=== PATIENT | male | born 1940 | race Caucasian/White ===

== ENCOUNTER 2017-04-06 00:21 | Inpatient (IN) | payer MEDICARE, BC ==
--- NOTE | 2017-04-06 00:39 | C.PDOC ---
History Of Present Illness 76 year old male presents to the ED c/o abdominal pain and emesis for the past 2 days. Patient reports he goes to dialysis on Friday, Friday, Friday. Patient went to dialysis on Friday and has also decreased PO intake. Patient is currently on antibiotics for "cellulitis". Time Seen by Provider: 04/06/17 00:38 Chief Complaint (Nursing): Abdominal Pain History Per: Patient History/Exam Limitations: no limitations Onset/Duration Of Symptoms: Days Current Symptoms Are (Timing): Still Present Location Of Pain/Discomfort: Diffuse Radiation Of Pain To:: None Quality Of Discomfort: "Pain" Associated Symptoms: Vomiting Alleviating Factors: None Recent travel outside of the [place]: No Additional History Per: Patient Past Medical History Reviewed: Historical Data, Nursing Documentation, Vital Signs Vital Signs: Last Vital Signs Temp 97.6 F 04/06/17 00:28 Pulse 63 04/06/17 00:28 Resp 14 04/06/17 00:28 BP 97/47 L 04/06/17 00:28 Pulse Ox 92 L 04/06/17 02:38 - Medical History PMH: HTN, End Stage Renal Disease (Dialysis; Lt. arm AV shunt; MWF) Surgical History: Coronary Stent - [facility] PERFORMANCE OF URINARY FILTRATION, SINGLE (04/13/16) Family History: States: No Known Family Hx - Social History Hx Tobacco Use: No Hx Alcohol Use: No Hx Substance Use: No - Immunization History Hx Tetanus Toxoid Vaccination: No Hx Influenza Vaccination: Yes Hx Pneumococcal Vaccination: Yes Review Of Systems Constitutional: Negative for: Fever, Chills Cardiovascular: Negative for: Chest Pain, Palpitations Respiratory: Negative for: Cough, Shortness of Breath Gastrointestinal: Positive for: Vomiting, Abdominal Pain Musculoskeletal: Negative for: Neck Pain Skin: Negative for: Rash Neurological: Negative for: Weakness, Numbness Physical Exam - Physical Exam Appears: Non-toxic, No Acute Distress Skin: Warm, Dry Head: Normacephalic Nose: No Discharge, No Deformity Oral Mucosa: Dry Neck: Normal ROM, Supple Chest: Symmetrical, Other (left shunt bruit) Cardiovascular: Rhythm Regular, No Murmur, Other (left shunt bruit) Respiratory: Rhonchi (scattered at the bases ) Gastrointestinal/Abdominal: Soft, Tenderness (diffuse), Distention (mild), No Guarding, No Rebound Extremity: Normal ROM, Pedal Edema (B/L trace), No Calf Tenderness, Capillary Refill (< 2 seconds), Deformity (severe gouty changes to B/L elbows ), No Swelling, Other (ventral right foot 2x5 cm area necrosis surrounded by yellowish area with fluctuance and a possible abscess) Pulses: Left Dorsalis Pedis: Normal, Right Dorsalis Pedis: Normal Neurological/Psych: Oriented x3, Normal Motor, Normal Sensation ED Course And Treatment - Laboratory Results Result Diagrams: 04/06/17 02:14 04/06/17 02:14 ECG: Interpreted By Me, Viewed By Me O2 Sat by Pulse Oximetry: 92 Pulse Ox Interpretation: Abnormal - Radiology CXR: Interpreted by Me, Viewed By Me CXR Interpretation: Yes: Other (mild chf). No: Infiltrates, Fracture, Cardiomegaly Progress Note: Plan: -VBG. -EKG. -Blood work. -CXR. -Protonix 80 mg. - Zofran 4 mg. -UA. spoke with dr llanes who requests that pt be admitted to dr juares service Central Line Placement - Central Line Placement Indication: Unable To Obtain Adequate Peripheral Access Central Line Placement: Right: Femoral The Area Was Thoroughly Prepared With: Betadine, Chlorhexidine, Draped Using Sterile Technique Area Was Locally Anesthetized With: Lidocaine 1% Procedure: Triple Lumen, Placed Using Standard Seldinger Technique, Catheter Was Sewn Into Place, Sterile Dressing Placed Over Line, Procedure Tolerated Well Critical Care Time - Critical Care Note Total Time (in mins): 30 Documented critical care: time excludes all time spent performing seperately billable procedures. Disposition Discussed With DrRaina: Debbie Shah Comment: accepted the pt on his service and took over the care at 2:40 AM Doctor Will See Patient In The: Hospital Counseled Patient/Family Regarding: Studies Performed, Diagnosis - Disposition Disposition: HOSPITALIZED Disposition Time: 00:39 Condition: CRITICAL Forms: [facility] (Lebanese) - POA Present On Arrival: Poor Glycemic Control - Clinical Impression Clinical Impression: Abdominal pain, ESRD (end stage renal disease) on dialysis, Sepsis, UGI bleed, Gangrene of right foot - Scribe Statement The provider has reviewed the documentation as recorded by the Scribe Rocky Randle All medical record entries made by the Scribe were at my direction and personally dictated by me. I have reviewed the chart and agree that the record accurately reflects my personal performance of the history, physical exam, medical decision making, and the department course for this patient. I have also personally directed, reviewed, and agree with the discharge instructions and disposition. Decision To Admit - Pt Status Changed To: Hospital Disposition Of: Inpatient - Admit Certification Admit to Inpatient:: After my assessment, the patient will require hospitalization for at least two midnights. This is because of the severity of symptoms shown, intensity of services needed, and/or the medical risk in this patient being treated as an outpatient. - InPatient: Physician Admission Certification:: After my assessment, the patient will require hospitalization for at least two midnights. This is because of the severity of symptoms shown, intensity of services needed, and/or the medical risk in this patient being treated as an outpatient. - . Bed Request Type: ICU Admitting Physician: Sherif Juares Patient Diagnosis: Abdominal pain, ESRD (end stage renal disease) on dialysis, Sepsis, UGI bleed, Gangrene of right foot
[2017-04-06] MEDS ORDERED: Pantoprazole 80 MG in Sodium Chloride 0.9% 100 ML IV STA (00:51)
[2017-04-06] MEDS ORDERED: Lidocaine 1% Inj (20ml) ONE (01:14)
[2017-04-06 02:02] LABS: VENOUS BLOOD GAS BASE EXCESS 5.9 mmol/L (0.0-2.0); VENOUS BLOOD GAS PCO2 31 mmHg (40-60); VENOUS BLOOD GAS PO2 35 mm/Hg (30-55); VENOUS BLOOD PH 7.56 (7.32-7.43)
[2017-04-06 02:18] LABS: BASO # 0.3 K/uL (0.0-0.2); BASO % 0.8 % (0.0-2.0); HEMOGLOBIN 14.1 g/dL (12.0-18.0); LYMPH # 0.5 K/uL (1.0-4.3); LYMPH % 1.5 % (20.0-40.0); MEAN CELL VOLUME 95.4 fL (80.0-94.0); MEAN CORPUSCULAR HEMOGLOBIN 31.7 pg (27.0-31.0); MEAN CORPUSCULAR HGB CONC 33.2 g/dL (33.0-37.0); MONO # 2.8 K/uL (0.0-0.8); MONO % 8.5 % (0.0-10.0); NEUT # 28.9 K/uL (1.8-7.0); NEUT % 89.2 % (50.0-75.0); PLATELET COUNT 267 K/uL (130-400); RBC 4.45 Mil/uL (4.40-5.90); RED CELL DISTRIBUTION WIDTH 16.5 % (11.5-14.5); WHITE BLOOD COUNT 32.4 K/uL (4.8-10.8)
[2017-04-06 02:25] LABS: INR 1.3; PROTHROMBIN TIME 15.2 SECONDS (9.7-12.2)
[2017-04-06] MEDS ORDERED: Piperacillin/Tazobact 3.375 gm 100 ML IVPB STA (02:29)
[2017-04-06 02:32] LABS: ALBUMIN 2.7 g/dL (3.5-5.0); CALCIUM 8.9 mg/dl (8.6-10.4)
[2017-04-06] MEDS ORDERED: Piperacill/Tazo 3.375gm in Dex 3.375 GM/50 ML BAG IVPB STA (02:32)
[2017-04-06 02:33] LABS: ALB/GLOB RATIO 0.9 (1.0-2.1)
[2017-04-06] MEDS ORDERED: Vancomycin 1 gm/NS 200 ml 1 GM/200 ML BAG IVPB STA (02:33)
--- NOTE | 2017-04-06 03:55 | CP.PCM.HP ---
History of Present Illness - History of Present Illness History of Present Illness: CC: Vomiting HPI: Mr Diaz is a 76 year old [facility] male who was brought in by ambulance for vomiting. His past medical history includes ESRD on HD, HTN, CAD, Hx of [place] and tophaceous gout. The history was provided by his daughter who was visiting from [place]. She said that on Friday after his hemodialysis, Mr Diaz went home and began vomiting brownish liquid. Mr Diaz's believes the emesis was bloody. He has been nauseous and vomiting for the past 48 hours. He also had 2 episodes of non-bloody diarrhea and has also had abdominal pain. He has also had decreased oral intake. His is his primary caregiver however the patient's had a stroke in 02/2017 and has had trouble taking care of the patient since then. The patient is able to ambulate at home with a walker. His daughter reports that he has poor compliance with medications. PMD: Dr. Tamara Shah PMHx: ESRD on HD since 2009; CAD; HTN; [place] in 1997; Tophaceous gout PSHx: CABG 1997 - triple bypass with stents; cholecystectomy 2004 Social Hx: Denies alcohol, drugs or tobacco use. Family Hx: Father had HTN, Stomach CA Allergies: Nitroglycerin Medications: Aspirin 81 mg PO daily, Atenolol 25 mg PO daily, Plavix 75 mg PO daily, Sensipar 30 mg PO daily, Uloric 40 mg PO daily, Pepcid 20 mg PO BID, Losartan 100 mg PO daily, Phoslo 667mg PO BID. Present on Admission - Present on Admission Any Indicators Present on Admission: No Review of Systems - Review of Systems Systems not reviewed;Unavailable: Acuity of Condition Review of Systems: Patient was in distress and unable to answer questions Past Patient History - Past Social History Smoking Status: Never Smoked - CARDIAC Hx Hypertension: Yes - MUSCULOSKELETAL/RHEUMATOLOGICAL Hx Gout: Yes - PSYCHIATRIC Hx Substance Use: No - SURGICAL HISTORY Hx Coronary Stent: Yes Meds Allergies/Adverse Reactions: Allergies Allergy/AdvReac Type Severity Reaction Status Date / Time nitroglycerin Allergy Verified 04/06/17 00:34 Physical Exam - Constitutional Appears: In Acute Distress, Unkempt, Confused - Head Exam Head Exam: ATRAUMATIC - Eye Exam Eye Exam: EOMI - ENT Exam ENT Exam: Mucous Membranes Dry - Neck Exam Neck exam: Positive for: Normal Inspection - Respiratory Exam Respiratory Exam: Rhonchi, NORMAL BREATHING PATTERN. absent: Rales, Wheezes Additional comments: Rhonchi at bases - Cardiovascular Exam Cardiovascular Exam: REGULAR RHYTHM. absent: Tachycardia, Systolic Murmur - GI/Abdominal Exam GI & Abdominal Exam: Distended, Soft, Tenderness. absent: Guarding, Rebound - Extremities Exam Extremities exam: Positive for: pedal edema, tenderness. Negative for: normal capillary refill, normal inspection, pedal pulses present Additional comments: Severe tophaceous gout at elbows bilaterally Pedal edema in ankles bilaterally Non-palpable pedal pulses bilaterally - Skin Skin Exam: Dry Additional comments: Right foot 5cm diameter eschar at first metatarsal Stasis dermatitis in feet bilaterally Tense skin in feet b/l Results - Vital Signs Recent Vital Signs: Last Vital Signs Temp 97.6 F 04/06/17 00:28 Pulse 63 04/06/17 00:28 Resp 14 04/06/17 00:28 BP 97/47 L 04/06/17 00:28 Pulse Ox 92 L 04/06/17 03:11 - Labs Result Diagrams: 04/06/17 02:14 04/06/17 02:14 Labs: Laboratory Results - last 24 hr 04/06/17 04/06/17 04/06/17 01:55 02:14 02:14 WBC 32.4 H D RBC 4.45 Hgb 14.1 Hct 42.4 MCV 95.4 H MCH 31.7 H MCHC 33.2 RDW 16.5 H Plt Count 267 MPV 10.0 Neut % (Auto) 89.2 H Lymph % (Auto) 1.5 L [place] % (Auto) 8.5 Eos % (Auto) 0.0 Baso % (Auto) 0.8 Neut # 28.9 H Lymph # 0.5 L [place] # 2.8 H Eos # 0.0 Baso # 0.3 H PT 15.2 H INR 1.3 APTT 35 H pO2 35 VBG pH 7.56 H VBG pCO2 31 L VBG HCO3 29.0 VBG Total CO2 28.8 H VBG O2 Sat (Calc) 70.7 H VBG Base Excess 5.9 H VBG Potassium 4.2 Sodium 140.0 Chloride 101.0 Glucose 79 Lactate 3.9 H Potassium Carbon Dioxide Anion Gap BUN Creatinine Est GFR ( Amer) Est GFR (Non-Af Amer) Random Glucose Calcium Total Bilirubin AST ALT Alkaline Phosphatase Total Protein Albumin Globulin Albumin/Globulin Ratio Lipase Venous Blood Potassium 4.2 Blood Type Antibody Screen 04/06/17 04/06/17 02:14 02:14 WBC RBC Hgb Hct MCV MCH MCHC RDW Plt Count MPV Neut % (Auto) Lymph % (Auto) [place] % (Auto) Eos % (Auto) Baso % (Auto) Neut # Lymph # [place] # Eos # Baso # PT INR APTT pO2 VBG pH VBG pCO2 VBG HCO3 VBG Total CO2 VBG O2 Sat (Calc) VBG Base Excess VBG Potassium Sodium 134 Chloride 95 L Glucose Lactate Potassium 4.0 Carbon Dioxide 25 Anion Gap 18 BUN 40 H Creatinine 6.7 H Est GFR ( Amer) 10 Est GFR (Non-Af Amer) 8 Random Glucose 74 L Calcium 8.9 Total Bilirubin 1.6 H AST 33 ALT 29 Alkaline Phosphatase 170 H Total Protein 5.5 L Albumin 2.7 L D Globulin 2.9 Albumin/Globulin Ratio 0.9 L Lipase 86 Venous Blood Potassium Blood Type A POSITIVE Antibody Screen Negative Assessment & Plan (1) Sepsis Assessment and Plan: Vitals on admission: HR 93, BP 66/42, RR 24, Temp 97.6, O2sat 100 WBC on admission: 32.4 Sepsis from likely bactremia from right foot eschar, suspected abscess F/U Chest w/ contrast F/U Abd Ileofem runoff w/ contrast Vanco and Zosyn received in ED 04/06/17 Imipenem/Cilastin 500mg IVPB Q12H started 04/06/17 F/U Urinanalysis F/U Blood culture F/U Urine culture Status: Acute (2) UGI bleed Assessment and Plan: UGI bleeding with coffee ground like vomiting, nv at home HOLD prophylactic or home anticoagulation Protonix 40mg IVP Q12H Zofran 4mg IVP Q6H PRN Status: Acute (3) Abdominal pain Assessment and Plan: F/U CT Angio Abd illeofem runoff Keep NPO for now Status: Acute (4) Gangrene of right foot Assessment and Plan: Consult Podiatry, Dr Plasencia Consult Vascular Surgery, Dr Greer Sepsis from likely bactremia from right foot eschar, suspected abscess Status: Acute (5) ESRD (end stage renal disease) on dialysis Assessment and Plan: Consult Nephrology, Dr Love, Recs appreciated On HD MWF Status: Acute (6) CAD (coronary artery disease) Assessment and Plan: CABG 1997 - triple bypass with stents HOLD home med aspirin 81mg PO QD HOLD home med atenolol 25mg PO QD HOLD home med plavix 75mg PO QD F/U Echo Status: Acute (7) HTN (hypertension) Assessment and Plan: BP low on admission 2/2 dehydration On Dopamine drip HOLD all home BP meds Status: Acute (8) Prophylactic measure Assessment and Plan: SCD contraindicated 2/2 peripheral vascular disease VTE contraindicated 2/2 to possible upper GI bleed Keep NPO for now Status: Acute
[2017-04-06] MEDS ORDERED: Sodium Chloride 0.9% 1,000 ML IV ONE (03:58)
--- NOTE | 2017-04-06 04:00 | CP.PCM.CON ---
History of Present Illness - History of Present Illness History of Present Illness: 76 year old male with CAD s/p CABG,Stents,gout,ESRD on HD presents to the ED c/ o diffuse abdominal pain ,nausea,vomiting x 2 days(since last HD on 04/04) and 2 loose bowel movements 04/05/17. Vomitus was brown. Patient reports he goes to dialysis on Friday, Friday, Friday. Patient went to dialysis on Friday and has also decreased PO intake. Patient is currently on antibiotics for infection of the foot. No chest pain,palpitations,fever or chills. Unsure whether patient has been taking medications regularly History from daughter and patient. He lives with his who is the caregiver.The had a stroke in February and is difficult to care for the patient.Patient ambulates at home in ER patient Hypotensive with leucocytosis and elevated lactic acid level. Right Femoral TLC inserted for IV access Review of Systems - Review of Systems Systems not reviewed;Unavailable: Unstable Vital Signs Review of Systems: restless - Constitutional Constitutional: absent: Chills, Fever Additional comments: poor oral intake - EENT Eyes: absent: Blurred Vision, Change in Vision Ears: absent: Ear Pain, Dizziness Nose/Mouth/Throat: Dry Mouth. absent: Nasal Congestion, Hoarsness - Cardiovascular Cardiovascular: Edema. absent: Chest Pain, Paroxysmal Nocturnal Dyspnea - Respiratory Respiratory: absent: Cough, Dyspnea - Gastrointestinal Gastrointestinal: Abdominal Pain, Loose Stools, Nausea, Vomiting - Genitourinary Genitourinary: absent: Hematuria, Urinary Incontinence - Musculoskeletal Musculoskeletal: absent: Neck Pain, Stiffness Additional comments: Swelling in bilateral elbows chronic from Gout - Integumentary Integumentary: absent: Bleeding Lesions, Rash - Neurological Neurological: absent: Dizziness, Headaches - Hematologic/Lymphatic Hematologic: absent: Easy Bleeding Past Patient History - Past Medical History & Family History Past Medical History?: Yes - Past Social History Smoking Status: Never Smoked Alcohol: None Drugs: Denies Home Situation {Lives}: With Family - CARDIAC Hx Hypertension: Yes Other/Comment: Bypass surgery and stents - MUSCULOSKELETAL/RHEUMATOLOGICAL Hx Gout: Yes - GENITOURINARY/GYNECOLOGICAL Other/Comment: ESRD on Hemodialysis 3 times a week for the past 7-8 years - PSYCHIATRIC Hx Substance Use: No - SURGICAL HISTORY Hx Cholecystectomy: Yes Hx Coronary Stent: Yes Meds Allergies/Adverse Reactions: Allergies Allergy/AdvReac Type Severity Reaction Status Date / Time nitroglycerin Allergy Verified 04/06/17 00:34 Physical Exam - Constitutional Additional comments: restless - Head Exam Head Exam: ATRAUMATIC, NORMAL INSPECTION, NORMOCEPHALIC - Eye Exam Eye Exam: EOMI, Normal appearance, PERRL. absent: Conjunctival injection, Periorbital swelling Pupil Exam: NORMAL ACCOMODATION - ENT Exam ENT Exam: Mucous Membranes Dry - Neck Exam Neck exam: Positive for: Full Rom, Normal Inspection - Respiratory Exam Respiratory Exam: Clear to Auscultation Bilateral. absent: Accessory Muscle Use - Cardiovascular Exam Cardiovascular Exam: REGULAR RHYTHM. absent: JVD - GI/Abdominal Exam GI & Abdominal Exam: Normal Bowel Sounds, Soft, Tenderness Additional comments: tender left upper abdomen - Extremities Exam Extremities exam: Positive for: pedal edema. Negative for: calf tenderness, pedal pulses present Additional comments: bilateral leg edema right more than left - Neurological Exam Neurological exam: Alert, Oriented x3 - Skin Additional comments: both feet erythematous right foot plantar aspect distally 2x5 cm area of black skin surrounded by yellow area(soft) Elbows with gouty lesions Results - Vital Signs Recent Vital Signs: Last Vital Signs Temp 97.6 F 04/06/17 00:28 Pulse 63 04/06/17 00:28 Resp 14 04/06/17 00:28 BP 97/47 L 04/06/17 00:28 Pulse Ox 92 L 04/06/17 03:11 - Labs Result Diagrams: 04/06/17 02:14 04/06/17 02:14 Labs: Laboratory Results - last 24 hr 04/06/17 04/06/17 04/06/17 01:55 02:14 02:14 WBC 32.4 H D RBC 4.45 Hgb 14.1 Hct 42.4 MCV 95.4 H MCH 31.7 H MCHC 33.2 RDW 16.5 H Plt Count 267 MPV 10.0 Neut % (Auto) 89.2 H Lymph % (Auto) 1.5 L [place] % (Auto) 8.5 Eos % (Auto) 0.0 Baso % (Auto) 0.8 Neut # 28.9 H Lymph # 0.5 L [place] # 2.8 H Eos # 0.0 Baso # 0.3 H PT 15.2 H INR 1.3 APTT 35 H pO2 35 VBG pH 7.56 H VBG pCO2 31 L VBG HCO3 29.0 VBG Total CO2 28.8 H VBG O2 Sat (Calc) 70.7 H VBG Base Excess 5.9 H VBG Potassium 4.2 Sodium 140.0 Chloride 101.0 Glucose 79 Lactate 3.9 H Potassium Carbon Dioxide Anion Gap BUN Creatinine Est GFR ( Amer) Est GFR (Non-Af Amer) Random Glucose Calcium Total Bilirubin AST ALT Alkaline Phosphatase Total Protein Albumin Globulin Albumin/Globulin Ratio Lipase Venous Blood Potassium 4.2 Blood Type Antibody Screen 04/06/17 04/06/17 02:14 02:14 WBC RBC Hgb Hct MCV MCH MCHC RDW Plt Count MPV Neut % (Auto) Lymph % (Auto) [place] % (Auto) Eos % (Auto) Baso % (Auto) Neut # Lymph # [place] # Eos # Baso # PT INR APTT pO2 VBG pH VBG pCO2 VBG HCO3 VBG Total CO2 VBG O2 Sat (Calc) VBG Base Excess VBG Potassium Sodium 134 Chloride 95 L Glucose Lactate Potassium 4.0 Carbon Dioxide 25 Anion Gap 18 BUN 40 H Creatinine 6.7 H Est GFR ( Amer) 10 Est GFR (Non-Af Amer) 8 Random Glucose 74 L Calcium 8.9 Total Bilirubin 1.6 H AST 33 ALT 29 Alkaline Phosphatase 170 H Total Protein 5.5 L Albumin 2.7 L D Globulin 2.9 Albumin/Globulin Ratio 0.9 L Lipase 86 Venous Blood Potassium Blood Type A POSITIVE Antibody Screen Negative - EKG Data EKG Interpreted by: Myself - Imaging and Cardiology Chest x-ray Status: Image reviewed by me Assessment & Plan - Assessment and Plan (Free Text) Assessment: 1.Sespsis/Hypotension- Source ?right foot CT abdomen to R/o abdominal eitiology IV antibiotics f/u blood cultures 2.h/o CAD/HTN on meds 3.UGI Bleed-Protonix,f/u H/H 4.ESRD on HD 5.Gout
[2017-04-06] MEDS ORDERED: DOPamine 400mg/250ml D5W 400 MG/250 ML BAG IV PRN (04:34)
--- NOTE | 2017-04-06 05:53 | CP.PCM.PN ---
Subjective - Date & Time of Evaluation Date of Evaluation: 04/06/17 Time of Evaluation: 05:48 - Subjective Subjective: PMHx: ESRD on HD since 2009; CAD; HTN; [place] in 1997; Tophaceous gout PSHx: CABG 1997 - triple bypass with stents; cholecystectomy 2004 Social Hx: Denies alcohol, drugs or tobacco use. Family Hx: Father had HTN, Stomach [place] Allergies: Nitroglycerin Medications: Aspirin 81 mg PO daily, Atenolol 25 mg PO daily, Plavix 75 mg PO daily, Sensipar 30 mg PO daily, Uloric 40 mg PO daily, Pepcid 20 mg PO BID, Losartan 100 mg PO daily, Phoslo 667mg PO BID. Assessment UGI bleeding with coffee ground like vomiting, nv at home Significant dehydration Severe PVD Sepsis from likely bactremia from right foot eschar, suspected abscess ESRD on HD Addi Perla CAD CABG Poor compliance Femoral access done in ER. Plan Admit ICU Fluid bolus x 1.5 lit CTA from abd to lower ext, CT chest Need dopamine till bp improves and counter act sedation give as pt is rest less No anticoagulation but SCD PPI iv Vancomycin and Imipenem Nephrology, GI, Vas surg, podiatry consult See orders for detail. Objective - Vital Signs/Intake and Output Vital Signs (last 24 hours): Temp Pulse Resp BP Pulse Ox 97.6 F 95 H 22 132/67 100 04/06/17 00:28 04/06/17 05:40 04/06/17 05:40 04/06/17 05:40 04/06/17 05:40 Intake and Output: 04/05/17 04/06/17 18:59 06:59 Intake Total 1 Balance 1 - Medications Medications: Current Medications Imipenem/Cilastatin Sodium 500 (mg/ Sodium Chloride) 100 mls @ 100 mls/hr IVPB Q12H [facility] Last Admin: 04/06/17 04:37 Dose: 100 mls/hr Dopamine HCl/Dextrose (Dopamine 400mg/250ml D5w) 400 mg in 250 mls @ 43.375 mls /hr IV .Q5H46M PRN; Protocol; 15 MCG/KG/MIN PRN Reason: TITRATE PER MD ORDER Last Titration: 04/06/17 05:05 Dose: 10 mcg/kg/min, 28.917 mls/hr Ondansetron HCl (Zofran Inj) 4 mg IVP Q6H PRN PRN Reason: Nausea/Vomiting Pantoprazole Sodium (Protonix Inj) 40 mg IVP Q12H [facility] Last Admin: 04/06/17 04:39 Dose: 40 mg - Labs Labs: 04/06/17 02:14 04/06/17 02:14 PT 15.2 SECONDS (9.7-12.2) H 04/06/17 02:14 INR 1.3 04/06/17 02:14 APTT 35 SECONDS (21-34) H 04/06/17 02:14
[2017-04-06 05:55] LABS: BANDS 2 % (0-2); MONOCYTE 9 % (0-10); NEUTROPHIL 89 % (50-75); PLATELET ESTIMATE NORMAL (NORMAL); TOTAL CELLS COUNTED 100
[2017-04-06 07:59] LABS: BASO # 0.2 K/uL (0.0-0.2); BASO % 0.5 % (0.0-2.0); EOS % 0.1 % (0.0-4.0); LYMPH # 0.5 K/uL (1.0-4.3); LYMPH % 1.7 % (20.0-40.0); MEAN CORPUSCULAR HEMOGLOBIN 31.5 pg (27.0-31.0); MEAN CORPUSCULAR HGB CONC 32.1 g/dL (33.0-37.0); MONO % 6.5 % (0.0-10.0); NEUT # 28.1 K/uL (1.8-7.0); NEUT % 91.2 % (50.0-75.0); NRBC % 0.2 % (0.0-2.0); PLATELET COUNT 260 K/uL (130-400); RBC 4.75 Mil/uL (4.40-5.90); RED CELL DISTRIBUTION WIDTH 16.9 % (11.5-14.5); WHITE BLOOD COUNT 30.8 K/uL (4.8-10.8)
[2017-04-06 08:04] LABS: MEAN CELL VOLUME 98.2 fL (80.0-94.0)
--- NOTE | 2017-04-06 08:29 | CP.PCM.CON ---
History of Present Illness - History of Present Illness History of Present Illness: Vascular Surgery: Dr Greer 76M w/ hx of CAD s/p CABG, stents, ESRD on HD. Pt presented to ED with diffuse abdominal pain accompanied by N/V. Pt has been having BMs. Taking dialysis routinely. Unclear if pt has been medication compliant. Main history taken from ICU note as per and daughter. Pt is disoriented at this time. Adm dx : sepsis Sx consulted for b/l foot ischemia. appears chronic. will order CTA Review of Systems - Review of Systems Systems not reviewed;Unavailable: Acuity of Condition All systems: reviewed and no additional remarkable complaints except Past Patient History - Past Medical History & Family History Past Medical History?: Yes - Past Social History Smoking Status: Never Smoked - CARDIAC Hx Hypertension: Yes - PULMONARY Hx Respiratory Disorders: No - NEUROLOGICAL Hx Neurological Disorder: No - HEENT Hx HEENT Problems: No - RENAL Hx Chronic Kidney Disease: Yes Hx Dialysis: Yes Type of Dialysis Access: left AV SHUNT Hx Renal Failure: Yes Other/Comment: HD MWF - HEMATOLOGICAL/ONCOLOGICAL Hx Blood Disorders: No - INTEGUMENTARY Hx Cellulitis: Yes (LEGS) - MUSCULOSKELETAL/RHEUMATOLOGICAL Hx Gout: Yes - GENITOURINARY/GYNECOLOGICAL Other/Comment: ESRD on Hemodialysis MWF for the past 7-8 years - PSYCHIATRIC Hx Substance Use: No - SURGICAL HISTORY Hx Coronary Stent: Yes - ANESTHESIA Hx Anesthesia: Yes Hx Anesthesia Reactions: No Meds Allergies/Adverse Reactions: Allergies Allergy/AdvReac Type Severity Reaction Status Date / Time nitroglycerin Allergy Verified 04/06/17 00:34 - Medications Medications: Current Medications Imipenem/Cilastatin Sodium 500 (mg/ Sodium Chloride) 100 mls @ 100 mls/hr IVPB Q12H ERASMO Last Admin: 04/06/17 04:37 Dose: 100 mls/hr Dopamine HCl/Dextrose (Dopamine 400mg/250ml D5w) 400 mg in 250 mls @ 43.375 mls /hr IV .Q5H46M PRN; Protocol; 15 MCG/KG/MIN PRN Reason: TITRATE PER MD ORDER Last Titration: 04/06/17 05:05 Dose: 10 mcg/kg/min, 28.917 mls/hr Ondansetron HCl (Zofran Inj) 4 mg IVP Q6H PRN PRN Reason: Nausea/Vomiting Pantoprazole Sodium (Protonix Inj) 40 mg IVP Q12H [facility] Last Admin: 04/06/17 04:39 Dose: 40 mg Physical Exam - Constitutional Appears: No Acute Distress - Eye Exam Eye Exam: Normal appearance - Respiratory Exam Respiratory Exam: absent: Accessory Muscle Use, Respiratory Distress - Cardiovascular Exam Cardiovascular Exam: Tachycardia. absent: REGULAR RHYTHM - GI/Abdominal Exam GI & Abdominal Exam: Soft, Tenderness (diffuse). absent: Distended, Firm - Extremities Exam Additional comments: b/l lower extremity dry gangrene, non-palpable pulses below femoral, cold to touch Results - Vital Signs Recent Vital Signs: Last Vital Signs Temp 97.6 F 04/06/17 00:28 Pulse 95 H 04/06/17 05:49 Resp 17 04/06/17 05:49 BP 136/64 04/06/17 05:49 Pulse Ox 100 04/06/17 05:49 - Labs Result Diagrams: 04/06/17 07:43 04/06/17 07:43 Labs: Laboratory Results - last 24 hr 04/06/17 04/06/17 04/06/17 01:55 02:14 02:14 WBC 32.4 H D RBC 4.45 Hgb 14.1 Hct 42.4 MCV 95.4 H MCH 31.7 H MCHC 33.2 RDW 16.5 H Plt Count 267 MPV 10.0 Neut % (Auto) 89.2 H Lymph % (Auto) 1.5 L Barnes % (Auto) 8.5 Eos % (Auto) 0.0 Baso % (Auto) 0.8 Neut # 28.9 H Lymph # 0.5 L Barnes # 2.8 H Eos # 0.0 Baso # 0.3 H Neutrophils % (Manual) 89 H Band Neutrophils % 2 Lymphocytes % (Manual) TEST NOT PERFORMED Monocytes % (Manual) 9 Platelet Estimate Normal PT 15.2 H INR 1.3 APTT 35 H pO2 35 VBG pH 7.56 H VBG pCO2 31 L VBG HCO3 29.0 VBG Total CO2 28.8 H VBG O2 Sat (Calc) 70.7 H VBG Base Excess 5.9 H VBG Potassium 4.2 Sodium 140.0 Chloride 101.0 Glucose 79 Lactate 3.9 H Potassium Carbon Dioxide Anion Gap BUN Creatinine Est GFR ( Amer) Est GFR (Non-Af Amer) Random Glucose Calcium Total Bilirubin AST ALT Alkaline Phosphatase Total Protein Albumin Globulin Albumin/Globulin Ratio Lipase Venous Blood Potassium 4.2 Blood Type Antibody Screen 04/06/17 04/06/17 04/06/17 02:14 02:14 07:43 WBC 30.8 H RBC 4.75 Hgb 15.0 Hct 46.6 MCV 98.2 H D MCH 31.5 H MCHC 32.1 L RDW 16.9 H Plt Count 260 MPV 10.0 Neut % (Auto) 91.2 H Lymph % (Auto) 1.7 L Barnes % (Auto) 6.5 Eos % (Auto) 0.1 Baso % (Auto) 0.5 Neut # 28.1 H Lymph # 0.5 L Barnes # 2.0 H Eos # 0.0 Baso # 0.2 Neutrophils % (Manual) Band Neutrophils % Lymphocytes % (Manual) Monocytes % (Manual) Platelet Estimate PT INR APTT pO2 VBG pH VBG pCO2 VBG HCO3 VBG Total CO2 VBG O2 Sat (Calc) VBG Base Excess VBG Potassium Sodium 134 Chloride 95 L Glucose Lactate Potassium 4.0 Carbon Dioxide 25 Anion Gap 18 BUN 40 H Creatinine 6.7 H Est GFR ( Amer) 10 Est GFR (Non-Af Amer) 8 Random Glucose 74 L Calcium 8.9 Total Bilirubin 1.6 H AST 33 ALT 29 Alkaline Phosphatase 170 H Total Protein 5.5 L Albumin 2.7 L D Globulin 2.9 Albumin/Globulin Ratio 0.9 L Lipase 86 Venous Blood Potassium Blood Type A POSITIVE Antibody Screen Negative Assessment & Plan - Assessment and Plan (Free Text) Assessment: 76M admitted for sepsis, sx consulted for b/l foot ischemia Plan: appears like chronic dry gangrene will order CTA w/ ileofem run-off to eval vessels d/w Dr Percy Bueno, PGY3
[2017-04-06 08:30] LABS: ALB/GLOB RATIO 0.9 (1.0-2.1); CALCIUM 9.1 mg/dl (8.6-10.4); MAGNESIUM 2.3 mg/dL (1.6-2.3)
[2017-04-06 08:47] LABS: BANDS 2 % (0-2); LYMPHOCYTE 2 % (20-40); MONOCYTE 9 % (0-10); NEUTROPHIL 87 % (50-75); PLATELET ESTIMATE NORMAL (NORMAL); TOTAL CELLS COUNTED 100
--- NOTE | 2017-04-06 08:48 | RAD ---
PROCEDURE: CHEST RADIOGRAPH, 1 VIEW HISTORY: GI Bleeding COMPARISON: Comparison is made to 04/14/2016 FINDINGS: LUNGS: Prominent lung markings and reticular opacities seen at the lung bases slightly more on the left. Findings have improved compared to the previous exam. Otherwise no significant interval change. PLEURA: No pneumothorax or pleural fluid seen. CARDIOVASCULAR: The cardiac silhouette is normal in size. Left subclavian stent is again seen in place. The patient is status post sternotomy. OSSEOUS STRUCTURES: No significant abnormalities. VISUALIZED UPPER ABDOMEN: Normal. OTHER FINDINGS: None. IMPRESSION: Heterogeneous opacities at the lower lobes appear smaller compared to the previous exam. Otherwise no interval change.
[2017-04-06 08:49] LABS: ANISOCYTOSIS SLIGHT; HYPOCHROMIC SLIGHT; POLYCHROMIC SLIGHT
[2017-04-06 08:50] LABS: GIANT PLATELETS PRESENT; LARGE PLATELETS PRESENT; TARGET CELLS SLIGHT; TOXIC GRANULATION PRESENT
[2017-04-06] MEDS: EPINEPHrine 1 mg/ml (1:1000) Inj ONE ×2 (10:15)
[2017-04-06] MEDS ORDERED: Sodium Bicarbonate (8.4%) 50 Meq Syringe ONE ×3 (10:15→11:38)
[2017-04-06] MEDS ORDERED: Dextrose 50% SYRINGE Inj (50 ml) IV ONE (10:15)
[2017-04-06] MEDS ORDERED: Dextrose 50% VIAL Inj (50 ml) IV ONE ×2 (10:15→10:17)
--- NOTE | 2017-04-06 10:31 | PCM.ANES ---
Anesthesia Emergent Intubation - Diagnosis Working Diagnosis:: aspiration, code blue - Consult Reason for Consult:: airway protection and ventilation - Intubation Attempts Previous Number of Intubation Attempts:: 2 By:: Dr. Thomas - Pre-Intubation Vital Signs Oxygen Delivery Method: Non-Rebreather - Airway Management Oropharyngeal Area Suctioned: Yes (copious vomit) Possible Aspiration: Yes - Method of Intubation Intubation Method: Oral ETT ETT Size: 7.5 Lipline@: 23 Easy: No (direct laryngoscopy with mac 3 and 4 unable to obtain view. used glide ) Atramatic: Yes - Intubation Devices Bethel Scope Used: Yes - Placement Confirmation Breath Sounds Present & Equal Bilaterally: Yes Gurgling Sounds Not Audible at Epigastrum: Yes Positive EtCO2: Yes Recommendations: Ventilator, Chest X Ray, ABG
[2017-04-06] MEDS ORDERED: Midazolam 2 MG/2 ML VIAL ONE (10:38)
--- NOTE | 2017-04-06 11:00 | PCM.RRT ---
I.Reason for PSYCHIATRIC LPN - A) Acute Change in Patient: (Select all that apply): Acute change in heart rate less than 50 or greater than 120, Acute change in respiratory rate less than 8 or greater than 28 - Neurological Status Other (Please specify): Code Blue - Constitutional Additional Comments: CODE BLUE Plan - Assessment of Findings&Treatment Plan Mr. Diaz was admitted early this morning for sepsis, most likely bactremia from right foot eschar. Patient was found unresponsive around 10:17 by nursing staff in the ICU. Code Blue was called and CPR was started. Patient was found to be hypoglycemic. 2 amps of D50 were given. Epi was given once. 3 amps of Bicarb were given. 2 rounds of CPR were completed (approximately 4 minutes) when the patient entered ROSC. Patient was intubated by Anesthesia. Prior to the patient being intubated, the patient vomited. CXR ordered. Vital Signs at end of code blue Temp 97.2 BP 160/73 HR 59bpm Oxy Sat 87% RR 15 Approximately 15 minutes later, the patient's heart rate slowed down and a second Code Blue was called. CPR was started, 1 amp of epi and 2 amps of bicarb given. Compressions lasted approximately 3 minutes before patient re-entered ROSC. Patient's initial ABG post the second Code Blue (first ABG was unable to be obtained due to timing of second code), showed Lactate 15.4, pH 7.15, pO2 62 , pCO2 62. Vital Signs at end of code blue BP 98/48 HR 70bpm Oxy Sat 99% RR 23 Patient was started on started on Levophed (maxed out) and improved slightly. Patient began to teresa down again and BP began to drop more. Vasopressin (maxed out) was added as well as a Bicarb drip @150mL/hr. Epi Drip started. Dr. Jeffries consulted due to an EKG which showed NSR @ 78bpm, with RBBB and Bifascicular block, no ST elevations. The RBBB was found to be new when compared to an EKG from April 2016. Dr. Jeffries came to evaluate the patient and requested an ECHO to evaluate cardiac function. He stated he believed this is due to septic shock. See consult note for more information. A third Code Blue was called approximately half hour to hour later. CPR started. 1 amp of Epi given. 2 amps of Bicarb given. Patient later passed.
[2017-04-06 11:16] LABS: ARTERIAL BLOOD GAS HCO3 18.2 mmol/L (21-28); ARTERIAL BLOOD GAS O2 SAT 84.6 % (95-98); ARTERIAL BLOOD GAS PCO2 62 mm/Hg (35-45); ARTERIAL BLOOD GAS PH 7.15 (7.35-7.45); ARTERIAL BLOOD GAS PO2 62 mm/Hg (80-100); ARTERIAL BLOOD GAS TCO2 23.5 mmol/L (22-28)
[2017-04-06 11:20] VITALS: RESP 16
[2017-04-06] MEDS ORDERED: Sodium Bicarbonate (8.4%) 50 Meq Syringe IV ONE (11:38)
--- NOTE | 2017-04-06 11:43 | CP.PCM.CON ---
History of Present Illness - History of Present Illness History of Present Illness: I was asked to evaluate patient by the ICU team. Patient is a 76 year old male who was admitted to ICU for management of sepsis. The patient had an apparent gangrenous foot and was recieving antibiotics. He was brought in from home today and admitted to ICU. The patient was found to have severe sepsis and acidosis. code blue was called and the patient was intubated. He is hypotnesive in ICU, currently on pressors. Review of Systems - Review of Systems Systems not reviewed;Unavailable: Intubated Past Patient History - Past Medical History & Family History Past Medical History?: Yes - Past Social History Smoking Status: Never Smoked - CARDIAC Hx Hypertension: Yes - PULMONARY Hx Respiratory Disorders: No - NEUROLOGICAL Hx Neurological Disorder: No - HEENT Hx HEENT Problems: No - RENAL Hx Chronic Kidney Disease: Yes Hx Dialysis: Yes Type of Dialysis Access: left AV SHUNT Hx Renal Failure: Yes Other/Comment: HD MWF - HEMATOLOGICAL/ONCOLOGICAL Hx Blood Disorders: No - INTEGUMENTARY Hx Cellulitis: Yes (LEGS) - MUSCULOSKELETAL/RHEUMATOLOGICAL Hx Gout: Yes - GENITOURINARY/GYNECOLOGICAL Other/Comment: ESRD on Hemodialysis MWF for the past 7-8 years - PSYCHIATRIC Hx Substance Use: No - SURGICAL HISTORY Hx Coronary Stent: Yes - ANESTHESIA Hx Anesthesia: Yes Hx Anesthesia Reactions: No Meds Allergies/Adverse Reactions: Allergies Allergy/AdvReac Type Severity Reaction Status Date / Time nitroglycerin Allergy Verified 04/06/17 00:34 - Medications Medications: Current Medications Imipenem/Cilastatin Sodium 500 (mg/ Sodium Chloride) 100 mls @ 100 mls/hr IVPB Q12H [facility] Last Admin: 04/06/17 04:37 Dose: 100 mls/hr Dopamine HCl/Dextrose (Dopamine 400mg/250ml D5w) 400 mg in 250 mls @ 43.375 mls /hr IV .Q5H46M PRN; Protocol; 15 MCG/KG/MIN PRN Reason: TITRATE PER MD ORDER Last Titration: 04/06/17 05:05 Dose: 10 mcg/kg/min, 28.917 mls/hr Norepinephrine Bitartrate 4 mg (/ Sodium Chloride) 250 mls @ 15 mls/hr IV .[id number] PRN; Protocol; 4 MCG/MIN PRN Reason: TITRATE PER MD ORDER Last Admin: 04/06/17 11:19 Dose: 20 mcg/min, 75 mls/hr Sodium Bicarbonate 150 meq/ (Sodium Chloride) 1,000 mls @ 150 mls/hr IV .Q6H40M ERASMO Vasopressin 40 units/ Dextrose 42 mls @ 0.63 mls/hr IV .Q24H ERASMO; 0.01 UNITS/ MIN PRN Reason: Protocol Ondansetron HCl (Zofran Inj) 4 mg IVP Q6H PRN PRN Reason: Nausea/Vomiting Pantoprazole Sodium (Protonix Inj) 40 mg IVP Q12H ERASMO Last Admin: 04/06/17 04:39 Dose: 40 mg Physical Exam - Constitutional Appears: Toxic - Head Exam Head Exam: NORMAL INSPECTION - Eye Exam Eye Exam: Normal appearance - ENT Exam ENT Exam: Mucous Membranes Moist - Neck Exam Neck exam: Positive for: Full Rom - Respiratory Exam Respiratory Exam: Decreased Breath Sounds - Cardiovascular Exam Cardiovascular Exam: REGULAR RHYTHM - GI/Abdominal Exam GI & Abdominal Exam: Normal Bowel Sounds - Rectal Exam Rectal Exam: Deferred - Extremities Exam Additional comments: cool extremities - Back Exam Back exam: NORMAL INSPECTION - Neurological Exam Neurological exam: Alert - Skin Skin Exam: Cyanosis Results - Vital Signs Recent Vital Signs: Last Vital Signs Temp 96.7 F L 04/06/17 06:33 Pulse 64 04/06/17 11:19 Resp 16 04/06/17 11:19 BP 60/35 L 04/06/17 11:19 Pulse Ox 84 L 04/06/17 11:19 - Labs Result Diagrams: 04/06/17 07:43 04/06/17 07:43 Labs: Laboratory Results - last 24 hr 04/06/17 04/06/17 04/06/17 01:55 02:14 02:14 WBC 32.4 H D RBC 4.45 Hgb 14.1 Hct 42.4 MCV 95.4 H MCH 31.7 H MCHC 33.2 RDW 16.5 H Plt Count 267 MPV 10.0 Neut % (Auto) 89.2 H Lymph % (Auto) 1.5 L Thurston % (Auto) 8.5 Eos % (Auto) 0.0 Baso % (Auto) 0.8 Neut # 28.9 H Lymph # 0.5 L Thurston # 2.8 H Eos # 0.0 Baso # 0.3 H Neutrophils % (Manual) 89 H Band Neutrophils % 2 Lymphocytes % (Manual) TEST NOT PERFORMED Monocytes % (Manual) 9 Toxic Granulation Platelet Estimate Normal Large Platelets Giant Platelets Polychromasia Hypochromasia (manual) Anisocytosis (manual) Macrocytosis (manual) Target Cells PT 15.2 H INR 1.3 APTT 35 H Puncture Site pCO2 pO2 35 HCO3 ABG pH ABG Total CO2 ABG O2 Saturation ABG Base Excess Isiah Test ABG Potassium VBG pH 7.56 H VBG pCO2 31 L VBG HCO3 29.0 VBG Total CO2 28.8 H VBG O2 Sat (Calc) 70.7 H VBG Base Excess 5.9 H VBG Potassium 4.2 A-a O2 Difference Respiratory Index Sodium 140.0 Chloride 101.0 Glucose 79 Lactate 3.9 H Vent Mode Mechanical Rate FiO2 Tidal Volume PEEP Crit Value Called To Crit Value Called By Crit Value Read Back Blood Gas Notified Time Potassium Carbon Dioxide Anion Gap BUN Creatinine Est GFR ( Amer) Est GFR (Non-Af Amer) Random Glucose Lactic Acid Calcium Phosphorus Magnesium Total Bilirubin AST ALT Alkaline Phosphatase Total Protein Albumin Globulin Albumin/Globulin Ratio Lipase Arterial Blood Potassium Venous Blood Potassium 4.2 Blood Type Antibody Screen 04/06/17 04/06/17 04/06/17 02:14 02:14 07:43 WBC 30.8 H RBC 4.75 Hgb 15.0 Hct 46.6 MCV 98.2 H D MCH 31.5 H MCHC 32.1 L RDW 16.9 H Plt Count 260 MPV 10.0 Neut % (Auto) 91.2 H Lymph % (Auto) 1.7 L Thurston % (Auto) 6.5 Eos % (Auto) 0.1 Baso % (Auto) 0.5 Neut # 28.1 H Lymph # 0.5 L Thurston # 2.0 H Eos # 0.0 Baso # 0.2 Neutrophils % (Manual) 87 H Band Neutrophils % 2 Lymphocytes % (Manual) 2 L Monocytes % (Manual) 9 Toxic Granulation Present Platelet Estimate Normal Large Platelets Present Giant Platelets Present Polychromasia Slight Hypochromasia (manual) Slight Anisocytosis (manual) Slight Macrocytosis (manual) Slight Target Cells Slight PT INR APTT Puncture Site pCO2 pO2 HCO3 ABG pH ABG Total CO2 ABG O2 Saturation ABG Base Excess Isiah Test ABG Potassium VBG pH VBG pCO2 VBG HCO3 VBG Total CO2 VBG O2 Sat (Calc) VBG Base Excess VBG Potassium A-a O2 Difference Respiratory Index Sodium 134 Chloride 95 L Glucose Lactate Vent Mode Mechanical Rate FiO2 Tidal Volume PEEP Crit Value Called To Crit Value Called By Crit Value Read Back Blood Gas Notified Time Potassium 4.0 Carbon Dioxide 25 Anion Gap 18 BUN 40 H Creatinine 6.7 H Est GFR ( Amer) 10 Est GFR (Non-Af Amer) 8 Random Glucose 74 L Lactic Acid Calcium 8.9 Phosphorus Magnesium Total Bilirubin 1.6 H AST 33 ALT 29 Alkaline Phosphatase 170 H Total Protein 5.5 L Albumin 2.7 L D Globulin 2.9 Albumin/Globulin Ratio 0.9 L Lipase 86 Arterial Blood Potassium Venous Blood Potassium Blood Type A POSITIVE Antibody Screen Negative 04/06/17 04/06/17 04/06/17 07:43 07:43 11:11 WBC RBC Hgb Hct MCV MCH MCHC RDW Plt Count MPV Neut % (Auto) Lymph % (Auto) Thurston % (Auto) Eos % (Auto) Baso % (Auto) Neut # Lymph # Thurston # Eos # Baso # Neutrophils % (Manual) Band Neutrophils % Lymphocytes % (Manual) Monocytes % (Manual) Toxic Granulation Platelet Estimate Large Platelets Giant Platelets Polychromasia Hypochromasia (manual) Anisocytosis (manual) Macrocytosis (manual) Target Cells PT INR APTT Puncture Site Lf pCO2 62 H pO2 62 L HCO3 18.2 L ABG pH 7.15 L* ABG Total CO2 23.5 ABG O2 Saturation 84.6 L ABG Base Excess -8.1 L Isiah Test Na ABG Potassium 4.3 VBG pH VBG pCO2 VBG HCO3 VBG Total CO2 VBG O2 Sat (Calc) VBG Base Excess VBG Potassium A-a O2 Difference 574.0 Respiratory Index 9.3 Sodium 135 147.0 Chloride 96 L 101.0 Glucose 159 H Lactate 15.4 H* Vent Mode Prvc Mechanical Rate 16 FiO2 100.0 Tidal Volume 500 PEEP 5 Crit Value Called To Dr weiss Crit Value Called By Cinthia wan hand fretted instrument maker Crit Value Read Back Y Blood Gas Notified Time 1117 Potassium 4.4 Carbon Dioxide 18 L Anion Gap 26 H BUN 42 H Creatinine 6.6 H Est GFR ( Amer) 10 Est GFR (Non-Af Amer) 8 Random Glucose 72 L Lactic Acid 7.7 H* Calcium 9.1 Phosphorus 9.8 H Magnesium 2.3 Total Bilirubin 2.0 H AST 66 H D ALT 25 Alkaline Phosphatase 194 H Total Protein 6.2 L Albumin 3.0 L Globulin 3.2 Albumin/Globulin Ratio 0.9 L Lipase Arterial Blood Potassium 4.3 Venous Blood Potassium Blood Type Antibody Screen - EKG Data EKG Interpreted by: Myself Assessment & Plan (1) Septic shock Assessment and Plan: patient is critically ill. Recommend pressor support and antibiotics theapy. consider heparin drip if PE is suspected. EKG changes are likely due to severe acidosis and shock. poor prognosis. Status: Acute
[2017-04-06] MEDS ORDERED: Sodium Bicarbonate 8.4% 150 MEQ in Sodium Chloride 0.45% 850 ML IV SCH (12:00)
[2017-04-06] MEDS ORDERED: EPINEPHrine- 1 MG in Sodium Chloride 0.9% 250 ML IV PRN (12:00)
[2017-04-06] MEDS ORDERED: Heparin25000 units/250ml 1/2NS 25,000 UNITS/250 ML BAG IV PRN (12:36)
[2017-04-06] MEDS ORDERED: Thiamine 100 mg/ml Inj IV SCH (12:45)
[2017-04-06] MEDS ORDERED: Sodium Bicarbonate (8.4%) 50 Meq Syringe IVP STA (12:51)
[2017-04-06] MEDS ORDERED: Midazolam 2 MG/2 ML VIAL IVP ONE (12:51)
--- NOTE | 2017-04-06 13:00 | CP.PCM.PN ---
Subjective - Date & Time of Evaluation Date of Evaluation: 04/06/17 Time of Evaluation: 12:30 - Subjective Subjective: [facility] Progress Note Patient was seen and examined at 12:30 PM 04/06/17 ICU Bed 2 76 year old male (PMHx ESRD on HD, HTN, CAD/ME, Tophaceous Gout) who was admitted earlier this morning to the ICU for further treatment and evaluation of Sepsis. Patient has coded 3 times before my evaluation leading to being intubated and on multiple pressure support. ROS is not possible due to the patient being intubated. Exam: HEENT: NCA, Pupils are NOT dilated however are NOT responsive to light, NO cervical lymphadenopathy, NO thyromegaly, Dry Mucous Membranes Cardio: NS1 and NS2, Irregular rythma auscultated (corresponding to PVC and PAC on monitor) Resp: Diffuse course breath sounds GI: BS are reduced to nonexistant in all 4 quadrants, Liver and Spleen could not be adequately palpated due to Central Obesity, Soft Ext: Pulses are strong and equal biltaeral UE. Pulses could NOT palpated in the Bilateral LE. Right LE is cool to the touch from 2/3 of tibia to the the foot. Right Foot is bluish in color. There is a roughly 5.5 cm by 5 cm irregularly shaped nonstageable black ulcer present on the medial aspect of the Right Foot inferior to the Right Big Toe. There is a roughly 1 cm nonstageable ulcer on the nail bed of the Right Foot Toe #3. Left LE is cool to the touch from 1/2 tibia to the foot. Left Foot is greyish in color. NO ulcers noted on Left foot. Also noted on the bilateral elbow area are likely large tophacous gout deposits. Left Upper AVF with (+) Thrill Neuro: NOT possible Assessment and Plan: 1). Septic Shock Likely secondary to Right Foot Gangrene 3 Code Blue by 12:30 PM 04/06/17 and currently patient is on Vasopressin, Norepinephrine, Epinephrine Solumedrol 100 mg IV Q8H Imipenem 500 mg IV Q12H F/U Blood Culture F/U Urine Culture F/U further recommendations from ID Dr. Tara Parrish 2). Upper GI Bleed As per admission H&P patient was brought in by EMS for vomiting up of brown material that started after HD on Friday NPO Protonix 40 mg IV Q12H F/U further recommendations from GI Dr. Kelby Campoverde 3). Right Foot Unstageable Ulcer/Gangrene F/U CT Angio Abdomen with Ileofemoral Runoff F/U further recommendations Vascular Surgery Dr. Dasia Greer F/U further recommendations Podiatry Dr. Dasia Plasencia Please see Assessment and Plan #1 4). Acidosis Likely secondary to Septic Brandy secondary to Right Foot Gangrene NS with 150 mEQ HCO3 at 150 ml/hour 5). ESRD on HD via Left Upper Arm AVF F/U further recommendations Nephrology Dr. Cash 6). Hx CAD/ME F/U further recommendations Cardiology Dr. Corey Jeffries HOLD ASA, Plavix considering possible Upper GI Bleed HOLD Atenolol considering the Septic Shock 7). Hx HTN HOLD Atenolol considering the Septic Shock 8). Prophylaxis Protonix as above NO anticoagulation for now considering the possible Upper GI Bleed This patient has a poor prognosis. ICU Physician has spoken with the family who are en route to the hospital. Mingo Pascual D.O. Objective - Vital Signs/Intake and Output Vital Signs (last 24 hours): Temp Pulse Resp BP Pulse Ox 96.7 F L 64 16 60/35 L 84 L 04/06/17 06:33 04/06/17 11:19 04/06/17 11:19 04/06/17 11:19 04/06/17 11:19 Intake and Output: 04/06/17 04/06/17 06:59 18:59 Intake Total 29.9 11.6 Balance 29.9 11.6 - Medications Medications: Current Medications Hydrocortisone Sodium Succinate (Solu-Cortef) 100 mg IV Q8H ERASMO Imipenem/Cilastatin Sodium 500 (mg/ Sodium Chloride) 100 mls @ 100 mls/hr IVPB Q12H [facility] Last Admin: 04/06/17 04:37 Dose: 100 mls/hr Dopamine HCl/Dextrose (Dopamine 400mg/250ml D5w) 400 mg in 250 mls @ 43.375 mls /hr IV .Q5H46M PRN; Protocol; 15 MCG/KG/MIN PRN Reason: TITRATE PER MD ORDER Last Titration: 04/06/17 05:05 Dose: 10 mcg/kg/min, 28.917 mls/hr Norepinephrine Bitartrate 4 mg (/ Sodium Chloride) 250 mls @ 15 mls/hr IV .[id number] PRN; Protocol; 4 MCG/MIN PRN Reason: TITRATE PER MD ORDER Last Admin: 04/06/17 11:19 Dose: 20 mcg/min, 75 mls/hr Sodium Bicarbonate 150 meq/ (Sodium Chloride) 1,000 mls @ 150 mls/hr IV .Q6H40M ERASMO Vasopressin 40 units/ Sodium (Chloride) 40 mls @ 0.6 mls/hr IV .Q24H ERASMO; 0.01 UNITS/MIN PRN Reason: Protocol Epinephrine HCl 1 mg/ Sodium (Chloride) 251 mls @ 15.06 mls/hr IV .[id number] PRN ; Protocol; 1 MCG/MIN PRN Reason: TITRATE PER MD ORDER Heparin Sodium/Sodium Chloride (Heparin 70868 Units/250ml 1/2 Normal Saline) 25 ,000 units in 250 mls @ 13.86 mls/hr IV .Q18H3M PRN; Protocol; 18 UNITS/KG/HR PRN Reason: ADJUST RATE PER PROTOCOL Ondansetron HCl (Zofran Inj) 4 mg IVP Q6H PRN PRN Reason: Nausea/Vomiting Pantoprazole Sodium (Protonix Inj) 40 mg IVP Q12H [facility] Last Admin: 04/06/17 04:39 Dose: 40 mg Thiamine HCl (Vitamin B1 Inj) 200 mg IV Q12H ERASMO - Labs Labs: 04/06/17 07:43 04/06/17 07:43 PT 15.2 SECONDS (9.7-12.2) H 04/06/17 02:14 INR 1.3 04/06/17 02:14 APTT 35 SECONDS (21-34) H 04/06/17 02:14
--- NOTE | 2017-04-06 13:54 | RAD ---
PROCEDURE: CHEST RADIOGRAPH, 1 VIEW HISTORY: Rapid intubation COMPARISON: Comparison is made with the previous study dated 04/06/2017 FINDINGS: LUNGS: The patient is status post intubation. The ET tube is seen at appropriate position. Interval mild improvement in the lungs since the previous exam. No evidence of new infiltrate or consolidation compared to the previous exam. PLEURA: No pneumothorax or pleural fluid seen. CARDIOVASCULAR: The cardiac silhouette is mildly enlarged. OSSEOUS STRUCTURES: No significant abnormalities. VISUALIZED UPPER ABDOMEN: Normal. OTHER FINDINGS: None. IMPRESSION: Status post intubation. The ET tube is seen at appropriate position. Slight interval improvement in the lungs since the previous study.
--- NOTE | 2017-04-06 14:47 | CP.PCM.PRO ---
Pronouncement of Note - Clinical Findings Physical Exam: No Response Verbal/Painful Stimuli, Absent Peripheral Pulses{ Carotid & Femoral}, Absent Heart & Breath Sounds, No Pupillary Light Reflex, No Corneal Reflex, Pupils Fixed & Dilated, Absence of Vital Signs - Pronouncement Time Time of Pronouncement of : 14:40 - Notifications Pronouncement Notifications: Family Notified, Atending Notified Pool Installer Notified: Yes - Autopsy Autopsy Requested: No - [place] [id number]
--- NOTE | 2017-04-06 15:46 | CP.PCM.PCO ---
Physician Communication Note - Physician Communication Note Physician Communication Note: Please see above.
--- NOTE | 2017-04-06 19:33 | CP.PCM.DIS ---
Provider - Provider Date of Admission: 04/06/17 03:06 Attending physician: Sherif Juares MD Consults: Cardiology Dr. Corey Jeffries Nephrology Dr. Omer Shah Vascular Dr. Dasia Greer ID Dr. Rafia Parrish Podiatry Dr. Dasia Plasencia Time Spent in preparation of Discharge (in minutes): 40 Hospital Course - Lab Results Lab Results: Most Recent Lab Values WBC 30.8 K/uL (4.8-10.8) H 04/06/17 07:43 RBC 4.75 Mil/uL (4.40-5.90) 04/06/17 07:43 Hgb 15.0 g/dL (12.0-18.0) 04/06/17 07:43 Hct 46.6 % (35.0-51.0) 04/06/17 07:43 MCV 98.2 fL (80.0-94.0) H D 04/06/17 07:43 MCH 31.5 pg (27.0-31.0) H 04/06/17 07:43 MCHC 32.1 g/dL (33.0-37.0) L 04/06/17 07:43 RDW 16.9 % (11.5-14.5) H 04/06/17 07:43 Plt Count 260 K/uL (130-400) 04/06/17 07:43 MPV 10.0 fL (7.2-11.7) 04/06/17 07:43 Neut % (Auto) 91.2 % (50.0-75.0) H 04/06/17 07:43 Lymph % (Auto) 1.7 % (20.0-40.0) L 04/06/17 07:43 [place] % (Auto) 6.5 % (0.0-10.0) 04/06/17 07:43 Eos % (Auto) 0.1 % (0.0-4.0) 04/06/17 07:43 Baso % (Auto) 0.5 % (0.0-2.0) 04/06/17 07:43 Neut # 28.1 K/uL (1.8-7.0) H 04/06/17 07:43 Lymph # 0.5 K/uL (1.0-4.3) L 04/06/17 07:43 [place] # 2.0 K/uL (0.0-0.8) H 04/06/17 07:43 Eos # 0.0 K/uL (0.0-0.7) 04/06/17 07:43 Baso # 0.2 K/uL (0.0-0.2) 04/06/17 07:43 Neutrophils % (Manual) 87 % (50-75) H 04/06/17 07:43 Band Neutrophils % 2 % (0-2) 04/06/17 07:43 Lymphocytes % (Manual) 2 % (20-40) L 04/06/17 07:43 Monocytes % (Manual) 9 % (0-10) 04/06/17 07:43 Toxic Granulation Present 04/06/17 07:43 Platelet Estimate Normal (NORMAL) 04/06/17 07:43 Large Platelets Present 04/06/17 07:43 Giant Platelets Present 04/06/17 07:43 Polychromasia Slight 04/06/17 07:43 Hypochromasia (manual) Slight 04/06/17 07:43 Anisocytosis (manual) Slight 04/06/17 07:43 Macrocytosis (manual) Slight 04/06/17 07:43 Target Cells Slight 04/06/17 07:43 PT 15.2 SECONDS (9.7-12.2) H 04/06/17 02:14 INR 1.3 04/06/17 02:14 APTT 35 SECONDS (21-34) H 04/06/17 02:14 Puncture Site Lf 04/06/17 11:11 pCO2 62 mm/Hg (35-45) H 04/06/17 11:11 pO2 62 mm/Hg (80-100) L 04/06/17 11:11 HCO3 18.2 mmol/L (21-28) L 04/06/17 11:11 ABG pH 7.15 (7.35-7.45) L* 04/06/17 11:11 ABG Total CO2 23.5 mmol/L (22-28) 04/06/17 11:11 ABG O2 Saturation 84.6 % (95-98) L 04/06/17 11:11 ABG Base Excess -8.1 mmol/L (-2.0-3.0) L 04/06/17 11:11 Isiah Test Na 04/06/17 11:11 ABG Potassium 4.3 mmol/L (3.6-5.2) 04/06/17 11:11 VBG pH 7.56 (7.32-7.43) H 04/06/17 01:55 VBG pCO2 31 mmHg (40-60) L 04/06/17 01:55 VBG HCO3 29.0 mmol/L 04/06/17 01:55 VBG Total CO2 28.8 mmol/L (22-28) H 04/06/17 01:55 VBG O2 Sat (Calc) 70.7 % (40-65) H 04/06/17 01:55 VBG Base Excess 5.9 mmol/L (0.0-2.0) H 04/06/17 01:55 VBG Potassium 4.2 mmol/L (3.6-5.2) 04/06/17 01:55 A-a O2 Difference 574.0 mm/Hg 04/06/17 11:11 Respiratory Index 9.3 04/06/17 11:11 Sodium 147.0 mmol/l (132-148) 04/06/17 11:11 Chloride 101.0 mmol/L (98-107) 04/06/17 11:11 Glucose 159 mg/dl (75-110) H 04/06/17 11:11 Lactate 15.4 mmol/L (0.7-2.1) H* 04/06/17 11:11 Vent Mode Prvc 04/06/17 11:11 Mechanical Rate 16 04/06/17 11:11 FiO2 100.0 % 04/06/17 11:11 Tidal Volume 500 04/06/17 11:11 PEEP 5 04/06/17 11:11 Crit Value Called To Dr weiss 04/06/17 11:11 Crit Value Called By Cinthia wan juvenile officer 04/06/17 11:11 Crit Value Read Back Y 04/06/17 11:11 Blood Gas Notified Time 1117 04/06/17 11:11 Sodium 135 mmol/L (132-148) 04/06/17 07:43 Potassium 4.4 mmol/L (3.6-5.2) 04/06/17 07:43 Chloride 96 mmol/L (98-107) L 04/06/17 07:43 Carbon Dioxide 18 mmol/L (22-30) L 04/06/17 07:43 Anion Gap 26 (10-20) H 04/06/17 07:43 BUN 42 mg/dL (9-20) H 04/06/17 07:43 Creatinine 6.6 mg/dL (0.8-1.5) H 04/06/17 07:43 Est GFR ( Amer) 10 04/06/17 07:43 Est GFR (Non-Af Amer) 8 04/06/17 07:43 POC Glucose (mg/dL) 93 mg/dL (65-110) 04/06/17 10:27 Random Glucose 72 mg/dL (75-110) L 04/06/17 07:43 Lactic Acid 7.7 mmol/L (0.7-2.1) H* 04/06/17 07:43 Calcium 9.1 mg/dl (8.6-10.4) 04/06/17 07:43 Phosphorus 9.8 mg/dL (2.5-4.5) H 04/06/17 07:43 Magnesium 2.3 mg/dL (1.6-2.3) 04/06/17 07:43 Total Bilirubin 2.0 mg/dL (0.2-1.3) H 04/06/17 07:43 AST 66 U/L (17-59) H D 04/06/17 07:43 ALT 25 U/L (21-72) 04/06/17 07:43 Alkaline Phosphatase 194 U/L (38-126) H 04/06/17 07:43 Total Protein 6.2 g/dL (6.3-8.3) L 04/06/17 07:43 Albumin 3.0 g/dL (3.5-5.0) L 04/06/17 07:43 Globulin 3.2 gm/dL (2.2-3.9) 04/06/17 07:43 Albumin/Globulin Ratio 0.9 (1.0-2.1) L 04/06/17 07:43 Lipase 86 U/L (23-300) 04/06/17 02:14 Arterial Blood Potassium 4.3 mmol/L (3.6-5.2) 04/06/17 11:11 Venous Blood Potassium 4.2 mmol/L (3.6-5.2) 04/06/17 01:55 Blood Type A POSITIVE 04/06/17 02:14 Antibody Screen Negative 04/06/17 02:14 - Hospital Course Hospital Course: Hospitatlist Discharge Note Patient was seen and examined at 12:30 PM 04/06/17 ICU Bed 2 76 year old male (PMHx ESRD on HD, HTN, CAD/SC, Tophaceous Gout) who was admitted earlier this morning to the ICU for further treatment and evaluation of Sepsis. Patient has coded 3 times before my evaluation leading to being intubated and on multiple pressure support. Patient at 2:40 PM. Please see individual Assessment and Plans below for details for each problem for this patient. ROS is not possible due to the patient being intubated. Exam: HEENT: NCA, Pupils are NOT dilated however are NOT responsive to light, NO cervical lymphadenopathy, NO thyromegaly, Dry Mucous Membranes Cardio: NS1 and NS2, Irregular rythma auscultated (corresponding to PVC and PAC on monitor) Resp: Diffuse course breath sounds GI: BS are reduced to nonexistant in all 4 quadrants, Liver and Spleen could not be adequately palpated due to Central Obesity, Soft Ext: Pulses are strong and equal biltaeral UE. Pulses could NOT palpated in the Bilateral LE. Right LE is cool to the touch from 2/3 of tibia to the the foot. Right Foot is bluish in color. There is a roughly 5.5 cm by 5 cm irregularly shaped nonstageable black ulcer present on the medial aspect of the Right Foot inferior to the Right Big Toe. There is a roughly 1 cm nonstageable ulcer on the nail bed of the Right Foot Toe #3. Left LE is cool to the touch from 1/2 tibia to the foot. Left Foot is greyish in color. NO ulcers noted on Left foot. Also noted on the bilateral elbow area are likely large tophacous gout deposits. Left Upper AVF with (+) Thrill Neuro: NOT possible Assessment and Plan: 1). Septic Shock Likely secondary to Right Foot Gangrene 3 Code Blue by 12:30 PM 04/06/17 and currently patient is on Vasopressin, Norepinephrine, Epinephrine Solumedrol 100 mg IV Q8H Imipenem 500 mg IV Q12H F/U Blood Culture F/U Urine Culture F/U further recommendations from ID Dr. Tara Parrish 2). Upper GI Bleed As per admission H&P patient was brought in by EMS for vomiting up of brown material that started after HD on Friday NPO Protonix 40 mg IV Q12H F/U further recommendations from GI Dr. Kelby Campoverde 3). Right Foot Unstageable Ulcer/Gangrene F/U CT Angio Abdomen with Ileofemoral Runoff F/U further recommendations Vascular Surgery Dr. Dasia Greer F/U further recommendations Podiatry Dr. Dasia Plasencia Please see Assessment and Plan #1 4). Acidosis Likely secondary to Septic Brandy secondary to Right Foot Gangrene NS with 150 mEQ HCO3 at 150 ml/hour 5). ESRD on HD via Left Upper Arm AVF F/U further recommendations Nephrology Dr. Cash 6). Hx CAD/SC F/U further recommendations Cardiology Dr. Corey Jeffries HOLD ASA, Plavix considering possible Upper GI Bleed HOLD Atenolol considering the Septic Shock 7). Hx HTN HOLD Atenolol considering the Septic Shock 8). Prophylaxis Protonix as above NO anticoagulation for now considering the possible Upper GI Bleed Mingo Pascual D.O. Discharge Exam - Head Exam Head Exam: NORMAL INSPECTION Discharge Plan - Follow Up Plan Condition: CRITICAL Disposition: HOME/ ROUTINE
[2017-04-06 22:00] VITALS: BP 126/57; PULSE 34; O2SAT 97
[2017-04-06 22:07] VITALS: TEMP 94.2
--- NOTE | 2017-04-08 13:20 | CARD ---
APPROVED REPORT EKG Measurement Heart [id number] <Conclusion> Sinus rhythm with premature supraventricular complexes and with occasional premature ventricular complexes Right axis deviation Low voltage QRS Cannot rule out Anteroseptal infarct, age undetermined ST & T wave abnormality, consider inferolateral ischemia Abnormal ECG
--- NOTE | 2017-04-08 13:20 | CARD ---
APPROVED REPORT EKG Measurement Heart [id number] <Conclusion> Atrial flutter with 4:1 AV conduction Rightward axis Low voltage QRS Cannot rule out Anterior infarct, age undetermined ST & T wave abnormality, consider inferolateral ischemia Abnormal ECG
--- NOTE | 2017-04-08 13:20 | CARD ---
APPROVED REPORT EKG Measurement Heart [id number] <Conclusion> Suspect arm lead reversal, interpretation assumes no reversal Unusual P axis, possible ectopic atrial rhythm with premature supraventricular complexes Right bundle branch block Left posterior fascicular block Bifascicular block T wave abnormality, consider lateral ischemia Abnormal ECG
== END 2017-04-06 19:00 | DRG 871 ==
LOC: C.ER 00:21 → C.9I 03:06
PROVIDERS: ADMIT Internal Medicine; ATTEND Internal Medicine
PROC: 05H633Z Insertion of Infusion Device into Left Subclavian Vein, Percutaneous Approach (ICD-10-PCS; principal; 2017-04-06)
PROC: 5A1935Z Respiratory Ventilation, Less than 24 Consecutive Hours (ICD-10-PCS; 2017-04-06)
PROC: 0BH17EZ Insertion of Endotracheal Airway into Trachea, Via Natural or Artificial Opening (ICD-10-PCS; 2017-04-06)
DX: A41.9 Sepsis, unspecified organism (principal); N18.6 End stage renal disease; R65.21 Severe sepsis with septic shock; E87.2 Acidosis; I96 Gangrene, not elsewhere classified; I12.0 Hypertensive chronic kidney disease with stage 5 chronic kidney disease or end stage renal disease; K92.2 Gastrointestinal hemorrhage, unspecified; L97.519 Non-pressure chronic ulcer of other part of right foot with unspecified severity; E86.0 Dehydration; I87.2 Venous insufficiency (chronic) (peripheral); L03.115 Cellulitis of right lower limb; L03.116 Cellulitis of left lower limb; I25.10 Atherosclerotic heart disease of native coronary artery without angina pectoris; I49.3 Ventricular premature depolarization; I73.9 Peripheral vascular disease, unspecified; M1A.9XX1 Chronic gout, unspecified, with tophus (tophi); R10.84 Generalized abdominal pain; I25.2 Old myocardial infarction; Z95.1 Presence of aortocoronary bypass graft; Z95.5 Presence of coronary angioplasty implant and graft; Z90.49 Acquired absence of other specified parts of digestive tract; Z99.2 Dependence on renal dialysis; Z91.14 Patient's other noncompliance with medication regimen; Z79.2 Long term (current) use of antibiotics; Z79.82 Long term (current) use of aspirin